=== PATIENT | male | born 1980 | race Caucasian/White ===

== ENCOUNTER 2019-03-02 11:36 | Emergency (ER) | payer SELFPAY ==
[~2019-03-02] VITALS: Ht 170.2 cm; Wt 77.2 kg
[2019-03-02] MEDS ORDERED: LIPITOR40 MG PO (11:49)
[2019-03-02] MEDS ORDERED: LISINOPRIL10 MG PO (11:49)
[2019-03-02] MEDS ORDERED: GLUCOPHAGE1000 MG PO (11:50)
[2019-03-02] MEDS ORDERED: GLIPIZIDE10 MG PO (11:50)
[2019-03-02] MEDS ORDERED: BRILINTA90 MG PO (11:50)
[2019-03-02] MEDS ORDERED: METOPROLOL TART50 MG PO (11:50)
[2019-03-02] MEDS ORDERED: REQUIP0.5 MG PO (11:51)
[2019-03-02] MEDS ORDERED: VENTOLIN HFA18 GM INH (12:23)
[2019-03-02] MEDS ORDERED: AMOXICILLIN500 MG PO (12:23)
[2019-03-02] MEDS ORDERED: SUDAFED 12-HOU120 MG PO (12:23)
== END 2019-03-02 12:36 | disposition home or self-care (01) ==
LOC: ED 11:36
DX: H65.192 Other acute nonsuppurative otitis media, left ear (principal); J06.9 Acute upper respiratory infection, unspecified; H69.82 Other specified disorders of Eustachian tube, left ear; I10 Essential (primary) hypertension; E11.9 Type 2 diabetes mellitus without complications; Z87.891 Personal history of nicotine dependence; Z79.899 Other long term (current) drug therapy; Z79.84 Long term (current) use of oral hypoglycemic drugs
CPT/HCPCS: 99282